=== PATIENT | male | born 1955 | race Caucasian/White ===

== ENCOUNTER → 2017-08-08 | Outpatient (CLI) | payer BC ==
--- NOTE | 2017-08-08 17:14 | RAD ---
EXAM: Right lower extremity venous Doppler. HISTORY: Right lower extremity pain/swelling and bruising. COMPARISON: None. FINDINGS: Grayscale and Doppler analysis of the right lower extremity deep venous system was performed with graded compression and augmentation. The common femoral, greater saphenous, superficial femoral, popliteal and calf veins were assessed. There is no evidence of deep venous thrombosis. There is a hypoechoic complex fluid collection within the medial aspect of the right proximal calf. IMPRESSION: 1. No evidence of deep venous thrombosis. 2. Findings consistent with a ruptured Metzger's cyst or a hematoma along the proximal, medial calf. No gross muscular tear is appreciated sonographically.
== END | disposition home or self-care (01) ==
LOC: US 16:12
PROVIDERS: ATTEND Orthopaedic Surgery Sports Medicine
DX: M79.604 Pain in right leg (principal); M79.89 Other specified soft tissue disorders
CPT/HCPCS: 93971

== ENCOUNTER → 2018-02-07 | Outpatient (CLI) | payer BC ==
[2018-02-07 20:17] LABS: CALCIUM PTH 10.3 mg/dL (8.6-10.2); CREATININE PTH 1.07 mg/dL (0.76-1.27); PHOSPHORUS PTH 2.2 mg/dL (2.5-4.5); PTH INTACT 55 pg/mL (15-65); eGFR AFRICAN-AMER 87 (>59); eGFR NON AFRICAN-AMER 75 (>59)
== END | disposition home or self-care (01) ==
LOC: LAB 09:13
DX: N20.1 Calculus of ureter (principal); I10 Essential (primary) hypertension
CPT/HCPCS: 36415; 82310; 83970

== ENCOUNTER → 2018-02-19 | Outpatient (CLI) | payer BC ==
[2018-02-19 12:03] LABS: CALCIUM 10.2 mg/dL (8.5-10.1)
[2018-02-19 23:12] LABS: CREATININE PTH 1.05 mg/dL (0.76-1.27); PHOSPHORUS PTH 2.3 mg/dL (2.5-4.5); PTH INTACT 53 pg/mL (15-65); eGFR AFRICAN-AMER 89 (>59); eGFR NON AFRICAN-AMER 77 (>59)
== END | disposition home or self-care (01) ==
LOC: LAB 11:30
DX: N20.1 Calculus of ureter (principal)
CPT/HCPCS: 36415; 82310; 83970

== ENCOUNTER → 2018-07-27 | Outpatient (CLI) | payer BC ==
[2017-11-28 11:00] VITALS: BP 138/80
[~2018-07-27] MED LIST: ALLO300T PO; AMLO5TAB7 PO; ASPI-482 PO; CARV3.12 PO; MONT10TA9 PO; MULT-638 PO; PANT20TA2 PO; TADA5TAB PO
--- NOTE | 2018-07-27 11:38 | KCIC ---
Single view abdomen dated 07/27/2018. No comparison available. Clinical data indication: Follow-up renal stone. FINDINGS: 2 supine images were submitted. There is a 4 mm calcific density at the lower pole right kidney. There are a few scattered punctate calcific densities on the left. No definite calculus along the course of either ureter. Rounded foci of increased density in the left pelvis, likely phleboliths. Bowel gas pattern is nonobstructive. Moderate stool throughout the colon. IMPRESSION: Bilateral nephrolithiasis. No plain film evidence of ureteral stone. If there is persistent clinical concern, CT would better evaluate. Electronically signed by: Carlos Holliday MD (07/27/2018 11:35 AM) [id number]
== END | disposition home or self-care (01) ==
LOC: KCIC 08:17
PROVIDERS: ATTEND Urology
DX: N20.0 Calculus of kidney (principal)
CPT/HCPCS: 74018

== ENCOUNTER → 2018-09-25 | Outpatient (CLI) | payer BC ==
[2017-11-28 11:00] VITALS: BP 138/80
--- NOTE | 2018-09-25 14:08 | KCIC ---
EXAM: Abdomen, single view. HISTORY: Ureterolithiasis. COMPARISON: 07/27/2018 and 11/27/2017 FINDINGS: Frontal views of the abdomen and pelvis are obtained. There are a few suspected tiny calcifications overlying the renal shadows, suggesting lithiasis. There is a stable left pelvic phlebolith. The previously demonstrated distal left ureteral stone is not seen sonographically. There is stool within the colon. No abnormally dilated loop of bowel is seen. IMPRESSION: 1. No radiographic evidence of a left distal ureteral stone demonstrated on a CT dated 11/27/2017. There are suspected faint punctate calcifications overlying both renal shadows, artifactual or due to tiny nonobstructing stones. 2. Nonobstructive bowel gas pattern. Electronically signed by: Michelle Kelly MD (09/25/2018 2:04 PM) [id number]
== END | disposition home or self-care (01) ==
LOC: KCIC 07:51
PROVIDERS: ATTEND Urology
DX: N20.1 Calculus of ureter (principal)
CPT/HCPCS: 74018

== ENCOUNTER → 2019-08-26 | Outpatient (CLI) | payer BC ==
[2017-11-28 11:00] VITALS: BP 138/80
[~2019-08-26] MED LIST changes: +AMLO5TAB10 PO; -AMLO5TAB7 PO; +MONT10TA49 PO; -MONT10TA9 PO
--- NOTE | 2019-08-26 14:56 | KCIC ---
KUB without comparison for renal calculus. FINDINGS: There is gas and stool distributed throughout the bowel. Suspected 3 mm renal calculus on the right appears new. Phleboliths in the pelvis. Degenerative changes of the spine. IMPRESSION: 1. Probable new 3 mm right renal calculus. Electronically signed by: Angus Lin MD (08/26/2019 2:53 PM) [id number]
== END | disposition home or self-care (01) ==
LOC: KCIC 08:03
PROVIDERS: ATTEND Urology
DX: N20.0 Calculus of kidney (principal); K56.41 Fecal impaction
CPT/HCPCS: 74018